=== PATIENT | male | born 1975 | race American Indian/Alaskan Native ===

== ENCOUNTER 2016-08-07 06:56 | Emergency (ER) | payer OTHER ==
[2016-08-07 07:06] VITALS: BP 124/77
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
[2016-08-07] MEDS ORDERED: FLEXERIL PO ONE (08:25)
[2016-08-07] MEDS ORDERED: MOTRIN PO ONE (08:25)
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
== END 2016-08-07 10:04 | disposition home or self-care (01) ==
LOC: ED 06:56
DX: S39.012A Strain of muscle, fascia and tendon of lower back, initial encounter (principal); V49.49XA Driver injured in collision with other motor vehicles in traffic accident, initial encounter; Y93.9 Activity, unspecified; Y92.9 Unspecified place or not applicable; Y99.9 Unspecified external cause status
CPT/HCPCS: 72100; 99283